=== PATIENT | female | born 1980 | race African-American/Black ===

== ENCOUNTER 2024-05-25 11:28 | Emergency (ER) | payer OTHER ==
[2024-05-25 11:37] VITALS: BP 107/67; PULSE 59; RESP 18; TEMP 98.4; BMI 27.1
== END 2024-05-25 13:11 | disposition home or self-care (01) ==
LOC: JERFT 11:28
DX: M79.644 Pain in right finger(s) (principal); M25.561 Pain in right knee; M54.50 Low back pain, unspecified; V79.59XA Passenger on bus injured in collision with other motor vehicles in traffic accident, initial encounter
CPT/HCPCS: 72100-TC-FY; 73130-TC-RT-FY; 73562-TC-RT-FY; 99284-25